=== PATIENT | female | born 1990 | race Caucasian/White ===

== ENCOUNTER 2022-09-26 15:28 | Outpatient (CLI) | payer MEDICAID ==
[~2022-09-26] VITALS: Ht 165.1 cm; Wt 134.2 kg
[2022-09-26 16:00] VITALS: BP 133/77
[2022-09-26 16:03] VITALS: BP 133/77
[2022-09-26 16:29] LABS: BILIRUBIN,URINE NEGATIVE (NEGATIVE); CLARITY,URINE CLEAR; COLOR,URINE YELLOW; GLUCOSE, URINE (UA) NEGATIVE (NEGATIVE); KETONES,URINE NEGATIVE (NEGATIVE); LEUKOCYTE ESTERASE ,URINE NEGATIVE (NEGATIVE); NITRITE,URINE NEGATIVE (NEGATIVE); PH,URINE 5.5 (5-9); PROTEIN,URINE NEGATIVE (NEGATIVE)
[2022-09-26 16:40] LABS: BACTERIA,URINE NEGATIVE /HPF; RBC,URINE 0-2 /HPF
--- NOTE | 2022-09-27 08:19 | Physician Query-Final Dx ---
Clinic Account Progress/Dx Physician Query: Please give diagnosis Please include # weeks gestation Date of Service Sep 26, 2022 at 15:28 MICHELLE,OctSep 27, 2022 08:19
== END 2022-09-26 17:00 | disposition home or self-care (01) ==
LOC: WSo 15:28 → LDRP 15:31 → WSo 17:00
PROVIDERS: ATTEND Family Medicine
DX: O62.9 Abnormality of forces of labor, unspecified (principal); Z3A.00 Weeks of gestation of pregnancy not specified
CPT/HCPCS: 81000; 99213

== ENCOUNTER 2022-10-07 04:48 | Inpatient (IN) | payer MEDICAID ==
[~2022-10-07] VITALS: Ht 167 cm; Wt 135.1 kg
[2022-10-07] VITALS (11 sets, daily range): BP systolic 99–131; BP diastolic 56–79
[2022-10-07] MEDS ORDERED: LACTATED RINGERS 1,000 ML IV PRN (05:30)
[2022-10-07] MEDS ORDERED: METOCLOPRAMIDE INJ 10 MG/2 ML (REGLAN) IV ONE (05:30)
[2022-10-07] MEDS ORDERED: CITRIC ACID/SOB CIT (BICITRA) 30 ML UDC PO ONE (05:30)
[2022-10-07] MEDS ORDERED: FAMOTIDINE 20MG/2ML IV (PEPCID) IV ONE (05:30)
[2022-10-07] MEDS ORDERED: CATHETER FLUSH 10 ML SYR IV PRN (05:30)
[2022-10-07 05:56] LABS: BILIRUBIN,URINE NEGATIVE (NEGATIVE); CLARITY,URINE CLEAR; COLOR,URINE YELLOW; GLUCOSE, URINE (UA) NEGATIVE (NEGATIVE); KETONES,URINE NEGATIVE (NEGATIVE); LEUKOCYTE ESTERASE ,URINE NEGATIVE (NEGATIVE); NITRITE,URINE NEGATIVE (NEGATIVE); PH,URINE 7.5 (5-9); PROTEIN,URINE NEGATIVE (NEGATIVE)
[2022-10-07 06:11] LABS: BACTERIA,URINE NEGATIVE /HPF; SQUAMOUS EPITHELIAL CELL,UR 0-2 /HPF
[2022-10-07] MEDS ORDERED: BUPR1TAB45 SL (06:13)
[2022-10-07 06:35] LABS: BASOPHILS % (AUTO) 0 % (0-10); EOSINOPHILS # (AUTO) 0.2 10^3/uL (0.0-0.3); EOSINOPHILS % (AUTO) 2 % (0-10); HEMATOCRIT 33 % (35-52); HEMOGLOBIN 11.1 g/dL (11.5-16.0); LYMPHOCYTES # (AUTO) 1.9 10^3/uL (1.0-4.0); LYMPHOCYTES % (AUTO) 19 % (12-44); MEAN CORPUSCULAR HEMOGLOBIN 28 pg (25-34); MEAN CORPUSCULAR HGB CONC 33 g/dL (32-36); MEAN CORPUSCULAR VOLUME 85 fL (80-99); MEAN PLATELET VOLUME 10.8 fL (9.0-12.2); MONOCYTES # (AUTO) 0.7 10^3/uL (0.0-1.0); MONOCYTES % (AUTO) 7 % (0-12); NEUTROPHILS # (AUTO) 7.1 10^3/uL (1.8-7.8); NEUTROPHILS % (AUTO) 72 % (42-75); PLATELET COUNT 179 10^3/uL (130-400); WHITE BLOOD COUNT 9.9 10^3/uL (4.3-11.0)
[2022-10-07] MEDS: LACTATED RINGERS 1,000 ML IV PRN ×2 (06:54→07:29)
[2022-10-07] MEDS ORDERED: CLINDAMYCIN 900 MG/50 ML IVPB 50 ML IV ONE (07:30)
[2022-10-07] MEDS: CATHETER FLUSH 10 ML SYR IV SCH ×2 (07:30→14:00)
--- NOTE | 2022-10-07 09:12 | History & Physical ---
History and Physical Date Seen by Provider: Oct 07, 2022 Time Seen by Provider: 09:08 This patient is a 31-year-old 7 para 3 3 female who presented with P PROM and early labor. Her GBS culture is reported as negative. Her PCP is Dr. Hernandez. She had care in [facility].Patient was planning repeat . Her presentation this morning was complicated by her history of Suboxone use.I have discussed this patient with high wire artist and they recommend proceeding with usual management continue her Suboxone at her usual dose and useNarcotic as needed for pain control. She can have epidural or spinalWith no consideration necessarily given to the fact that she is on Suboxone.Patient has occasional contractions she denies any other problems or issues with this . Allergies are to penicillin Medications are vitamins and Suboxone the Medical social and surgical histories are per the aunt record per Dr. Dixon ch HEENT exam is normal Neck is supple no lymphadenopathy no thyromegaly Abdomen is gravid soft nontender nondistended Extremities show no clubbing cyanosis. There is no Homans' sign. Pelvic exam confirms gross rupture membranes with cervix 1/2 cm. Bedside ultrasound demonstrates a vertex presentation with An ZENIA of 13 and a cervix that appears to be around the 7 cm in length at this point. Laboratory Tests Test 10/07/22 04:47 10/07/22 06:07 Range/Units Urine Color YELLOW Urine Clarity CLEAR Urine pH 7.5 5-9 Urine Specific [place] 1.015 L 1.016-1.022 Urine Protein NEGATIVE NEGATIVE Urine Glucose (UA) NEGATIVE NEGATIVE Urine Ketones NEGATIVE NEGATIVE Urine Nitrite NEGATIVE NEGATIVE Urine Bilirubin NEGATIVE NEGATIVE Urine Urobilinogen 0.2 < = 1.0 MG/DL Urine Leukocyte Esterase NEGATIVE NEGATIVE Urine RBC (Auto) NEGATIVE NEGATIVE Urine RBC NONE /HPF Urine WBC NONE /HPF Urine Squamous Epithelial Cells 0-2 /HPF Urine Crystals NONE /LPF Urine Bacteria NEGATIVE /HPF Urine Casts NONE /LPF Urine Mucus NEGATIVE /LPF Urine Culture Indicated NO White Blood Count 9.9 4.3-11.0 10^3/uL Red Blood Count 3.93 3.80-5.11 10^6/uL Hemoglobin 11.1 L 11.5-16.0 g/dL Hematocrit 33 L 35-52 % Mean Corpuscular Volume 85 80-99 fL Mean Corpuscular Hemoglobin 28 25-34 pg Mean Corpuscular Hemoglobin Concent 33 32-36 g/dL Red Cell Distribution Width 14.4 10.0-14.5 % Platelet Count 179 130-400 10^3/uL Mean Platelet Volume 10.8 9.0-12.2 fL Immature Granulocyte % (Auto) 0 % Neutrophils (%) (Auto) 72 42-75 % Lymphocytes (%) (Auto) 19 12-44 % Monocytes (%) (Auto) 7 0-12 % Eosinophils (%) (Auto) 2 0-10 % Basophils (%) (Auto) 0 0-10 % Neutrophils # (Auto) 7.1 1.8-7.8 10^3/uL Lymphocytes # (Auto) 1.9 1.0-4.0 10^3/uL Monocytes # (Auto) 0.7 0.0-1.0 10^3/uL Eosinophils # (Auto) 0.2 0.0-0.3 10^3/uL Basophils # (Auto) 0.0 0.0-0.1 10^3/uL Immature Granulocyte # (Auto) 0.0 0.0-0.1 10^3/uL Assessment and plan 38+ weeks gestation the patient with 3 previous C-sections and with spontaneous rupture membranes. Patient has Suboxone due to history of narcotic addiction. I have reviewed this patient with high wire artist at [facility] who recommends proceeding with usual indicated care which would include repeat . Continuing her Suboxone and using narcotic as necessary for pain control.We will proceed with delivery shortly 38 weeks gestation with 3 previous C-sections and spontaneous rupture membranes and early labor Allergies and Home Medications Allergies Coded Allergies: Penicillins (Verified Allergy, Unknown, 10/07/22) Patient Home Medication List Home Medication List Reviewed: No Buprenorphine HCl/Naloxone HCl (Buprenorphin-Naloxon 8-2 mg Sl) 8 Mg-2 Mg Tab.subl, 1 EACH SL DAILY, (Reported) Entered as Reported by: GT PEÑA on 10/07/22612 Last Action: New Order JOHNNY CONNOLLY MD Oct 07, 2022 09:12
[2022-10-07] MEDS ORDERED: fentaNYL INJ 100 MCG/2 ML AMP ONE (09:17)
--- NOTE | 2022-10-07 09:43 | Diagnostic Imaging Report ---
INDICATION: Evaluate amniotic fluid volume and presentation. TECHNIQUE: Multiple real-time grayscale images were obtained over the gravid uterus. COMPARISON: None FINDINGS: There is a single live fetus in a cephalic presentation. heart rate was recorded at 146 bpm. Placenta is anterior and fundal. Amniotic fluid index is 13 cm. Cervical length is 7.2 cm. No complicating features are seen. Biometrical measurements are as follows: Biparietal 9.48 cm, age 38 weeks 5 days. Head circumference 35.51 cm, age 41 weeks 4 days. Abdominal circumference 35.57 cm, age 39 weeks 4 days. Femur length 7.67 cm, age 39 weeks 2 days. Sonographic estimate age: 39 weeks 6 days. Sonographic estimated date of delivery: 10/08/2022. Estimated Weight: 3821 gm (+/- 558 gm). LMP percentile: 90%. heart rate: 146 beats per minute. number: 1 of 1. IMPRESSION: Single live IUP approximately 40 weeks gestational age. No complicating features are detected. Dictated by: Dictated on workstation # [id number]
[2022-10-07] MEDS: OXYTOCIN PRE-MIX DRIP 500 ML IV SCH ×2 (10:10→10:30)
[2022-10-07] MEDS ORDERED: OXYTOCIN PRE-MIX DRIP 500 ML IV ONE (10:27)
[2022-10-07] MEDS ORDERED: KETOROLAC 30 MG/ML VIAL IV SCH (11:30)
[2022-10-07] MEDS ORDERED: D5 LR IV SOLUTION 1,000 ML IV SCH (11:30)
[2022-10-07] MEDS ORDERED: MEPERIDINE (DEMEROL) INJ 100 MG/ML IM PRN (11:30)
[2022-10-07] MEDS ORDERED: PROMETHAZINE INJ 25 MG/ML (PHENERGAN) AMP IVP PRN (11:30)
[2022-10-07] MEDS: ACETAMINOPHEN 500 MG TAB (TYLENOL) PO SCH ×3 (11:34→23:13)
[2022-10-07] MEDS: IBUPROFEN 800 MG (MOTRIN) TAB PO SCH ×2 (18:00→23:13)
[2022-10-07] MEDS: DOCUSATE SODIUM 100 MG (COLACE) CAP PO SCH (20:23)
--- NOTE | 2022-10-07 23:01 | OPERATIVE REPORT ---
DATE OF SERVICE: 10/07/2022 PREOPERATIVE DIAGNOSES: A 38 and 2/7th weeks' gestation in labor with PPROM and three previous C-sections. POSTOPERATIVE DIAGNOSES: A 38 and 2/7th weeks' gestation in labor with PPROM and three previous C-sections. OPERATIVE PROCEDURE: Repeat low transverse delivery of a viable male infant with Apgars of 6 and 8 at 1 and 5 minutes respectively, weight of 6 pounds and 12 ounces. Cord blood pH of 7.3 and a time of 07/10/2022. DESCRIPTION OF PROCEDURE: With the patient in the supine position, under satisfactory spinal analgesia. The patient was prepped and draped in the usual fashion for abdominal surgery. Cuellar catheter was placed in the urinary bladder. The abdominal wall had a large panniculus that was retracted with towel clips in the lateral portion of the upper part of the lower quadrant on each side that was attached to a post at the head of the bed, exposing the lower abdomen nicely. Repeat Pfannenstiel incision was made through the skin with a scalpel. The patient's abdomen was entered in the usual manner. Bladder retractor was placed into position. Clean scalpel used to make a 4 cm hysterotomy incision transversely across the lower uterine segment that was extended bluntly as well. Fisher forceps were applied to facilitate the delivery of a vigorous viable male infant with Apgars and stats as noted above. The infant was bulb suctioned on delivery of the head, again on completion of the delivery. The umbilical cord was doubly clamped and cut and the infant passed to the pediatric nurse in attendance for the delivery. Cord bloods were obtained. The placenta delivered spontaneously Hernandez. It was normal with 3-vessel cord. It was sent to pathology for permanent section. The uterus was exteriorized and the interior wiped clean with a wet laparotomy sponge. Uterine incision was closed with a running locked suture of 2-0 Vicryl. Hemostasis was complete. The uterus was returned to the abdominal cavity. All blood clot and debris removed from the abdominal cavity. Sponge and needle counts were correct. Hemostasis was assured. The anterior parietoperitoneum was closed with 2-0 Vicryl as well as the rectus muscles. The rectus fascia and subcutaneous tissue was closed with 2-0 Vicryl as well. The skin was stapled. Sponge and needle counts were correct on completion of the procedure. Blood loss was around 400 mL. The patient tolerated the procedure well and was transferred to the recovery room in stable condition. The infant had been taken stable to the full term nursery under the care of pediatric nurse in attendance. Job ID: [id number] DocumentID: [id number] Dictated Date: 10/07/2022 12:59:00 Executive Consultant Date: 10/07/2022 22:59:00 Dictated By: JOHNNY CONNOLLY MD
[2022-10-08 04:05] VITALS: BP 115/63
[2022-10-08] MEDS: IBUPROFEN 800 MG (MOTRIN) TAB PO SCH ×3 (07:46→20:12)
[2022-10-08] MEDS: ACETAMINOPHEN 500 MG TAB (TYLENOL) PO SCH ×3 (07:46→20:12)
[2022-10-08 08:45] VITALS: BP 122/70
[2022-10-08] MEDS: DOCUSATE SODIUM 100 MG (COLACE) CAP PO SCH ×2 (08:51→20:12)
--- NOTE | 2022-10-08 10:38 | Progress Note ---
Standard Progress Note Progress Notes/Assess & Plan Date Seen by a Provider: Oct 08, 2022 Time Seen by a Provider: 10:34 Progress/Assessment & Plan This patient is without complaint. She is ambulating, voiding, tolerating oral intake well has good pain control. She denies chest pain, denies shortness of breath, denies nausea and vomiting and denies headache. She does report some serosanguineous drainage from her incision and some bruising of the mons and labia and lower abdominal wall Vital Signs Date Time Temp Pulse Resp B/P (MAP) Pulse Ox O2 Delivery O2 Flow Rate FiO2 10/08/22 08:45 36.7 108 18 122/70 (87) 99 Room Air 10/08/22 07:35 Room Air 10/08/22 04:05 36.3 98 18 115/63 (80) 99 Room Air 10/07/22 23:13 36.4 103 18 122/67 (85) 99 Room Air 10/07/22 19:07 83 18 126/78 (94) Room Air 10/07/22 18:05 36.6 85 18 123/69 (87) 99 Room Air 10/07/22 14:00 36.5 76 18 115/79 (91) 98 Room Air 10/07/22 11:23 Room Air 10/07/22 11:23 36.2 18 113/77 (89) 99 Room Air 10/07/22 11:08 Room Air 10/07/22 11:08 36.2 18 110/61 (77) 100 Room Air 10/07/22 10:53 Room Air 10/07/22 10:53 36.2 18 131/56 (81) 100 Room Air 10/07/22 10:38 Room Air 10/07/22 10:38 36.2 16 112/75 (87) 98 Room Air I & O 10/08/22 07:00 Intake Total 4900 ml Output Total 650 ml Balance 4250 ml Vital signs are stable. Patient is afebrile. The abdomen is benign. The fundus is firm below the umbilicus and nontender. The surgical incision is clean and dry. There is diffuse ecchymoses of the mons and extending into the labia bilaterally. The lower abdominal wall is involved with ecchymoses as well. There has been some drainage through the staple line but that has decreased since last night. Appears obvious patient has had some subcutaneous bleeding. There is no induration there is no inflammation there is no purulent discharge. She may very well have some degree of hematoma formation in the incisional space. Extremities show no clubbing or cyanosis. There is no Homans' sign. Pelvic exam is deferred Assessment and plan Patient is postoperative day #1 status post repeat for P PROM at 38+ weeks gestation. Her condition is complicated by her use of Suboxone due to her history of narcotic addiction. We are continuing her Suboxone as would be the norm. We are using oxycodone and dose is adequate for pain control patient is doing relatively well. She is ambulating nice. She has some extensive ecchymoses of the lower abdominal wall and subcutaneous pelvic tissue. At this point we will follow with observation. Should she develop concerning symptoms it may be necessary to explore the wound remove the hematoma etc. Patient otherwise will now have routine convalescent care JOHNNY CONNOLLY MD Oct 08, 2022 10:38
[2022-10-08] MEDS ORDERED: IBUP-1780 PO (10:40)
[2022-10-08] MEDS ORDERED: DOCU100C37 PO (10:40)
[2022-10-08] MEDS ORDERED: OXC5T PO (10:40)
--- NOTE | 2022-10-08 10:42 | Discharge Inst-Surgical ---
Discharge Inst-Surgical Depart Medication/Instructions New, Converted or Re-Newed RX: Transmitted to Pharmacy Consults/Follow Up Orders & Referrals Follow Up Appt: RTC 1 week for incision check with Dr. Sutton Call to make follow up appt. for patient in [address] Patterson. Wound Care: Remove [place], apply benzoin and steri strips. Activity Per routine post instructions. Prescriptions have been sent electronically to patient's pharmacy for Percocet Motrin and Colace. She is continue her own home medications including her Suboxone Diet as tolerated Patient may shower or tub bathe as desired. Continue home meds Activity Activity as Tolerated: No Diet Discharge Diet: No Restrictions JOHNNY SUTTON MD Oct 08, 2022 10:42
[2022-10-08 15:00] VITALS: BP 109/54
[2022-10-08] MEDS ORDERED: CALCIUM CARBONATE 500 MG (TUMS) TAB.CHEW PO PRN (18:00)
[2022-10-08 20:20] VITALS: BP 122/58
[2022-10-09] MEDS: IBUPROFEN 800 MG (MOTRIN) TAB PO SCH ×4 (02:35→20:08)
[2022-10-09] MEDS: ACETAMINOPHEN 500 MG TAB (TYLENOL) PO SCH ×4 (02:36→20:09)
[2022-10-09 02:40] VITALS: BP 116/62
[2022-10-09 08:00] VITALS: BP 115/57
[2022-10-09] MEDS: DOCUSATE SODIUM 100 MG (COLACE) CAP PO SCH ×2 (08:00→20:09)
--- NOTE | 2022-10-09 10:04 | Progress Note ---
Standard Progress Note Progress Notes/Assess & Plan Date Seen by a Provider: Oct 09, 2022 Time Seen by a Provider: 09:59 Progress/Assessment & Plan This patient is without complaint. She is ambulating, voiding, tolerating oral intake well has good pain control. She denies chest pain, denies shortness of breath, denies nausea and vomiting and denies headache. She does report some serosanguineous drainage from her incision and some bruising of the mons and labia and lower abdominal wall Vital Signs Date Time Temp Pulse Resp B/P (MAP) Pulse Ox O2 Delivery O2 Flow Rate FiO2 10/08/22 08:45 36.7 108 18 122/70 (87) 99 Room Air 10/08/22 07:35 Room Air 10/08/22 04:05 36.3 98 18 115/63 (80) 99 Room Air 10/07/22 23:13 36.4 103 18 122/67 (85) 99 Room Air 10/07/22 19:07 83 18 126/78 (94) Room Air 10/07/22 18:05 36.6 85 18 123/69 (87) 99 Room Air 10/07/22 14:00 36.5 76 18 115/79 (91) 98 Room Air 10/07/22 11:23 Room Air 10/07/22 11:23 36.2 18 113/77 (89) 99 Room Air 10/07/22 11:08 Room Air 10/07/22 11:08 36.2 18 110/61 (77) 100 Room Air 10/07/22 10:53 Room Air 10/07/22 10:53 36.2 18 131/56 (81) 100 Room Air 10/07/22 10:38 Room Air 10/07/22 10:38 36.2 16 112/75 (87) 98 Room Air I & O 10/08/22 07:00 Intake Total 4900 ml Output Total 650 ml Balance 4250 ml Vital signs are stable. Patient is afebrile. The abdomen is benign. The fundus is firm below the umbilicus and nontender. The surgical incision is clean and dry. There is diffuse ecchymoses of the mons and extending into the labia bilaterally. The lower abdominal wall is involved with ecchymoses as well. There has been some drainage through the staple line but that has decreased since last night. Appears obvious patient has had some subcutaneous bleeding. There is no induration there is no inflammation there is no purulent discharge. She may very well have some degree of hematoma formation in the incisional space. Extremities show no clubbing or cyanosis. There is no Homans' sign. Pelvic exam is deferred Assessment and plan Patient is postoperative day #1 status post repeat for P PROM at 38+ weeks gestation. Her condition is complicated by her use of Suboxone due to her history of narcotic addiction. We are continuing her Suboxone as would be the norm. We are using oxycodone and dose is adequate for pain control patient is doing relatively well. She is ambulating nice. She has some extensive ecchymoses of the lower abdominal wall and subcutaneous pelvic tissue. At this point we will follow with observation. Should she develop concerning symptoms it may be necessary to explore the wound remove the hematoma etc. Patient otherwise will now have routine convalescent care October 09, 2022 This patient is without complaint. She is ambulating, voiding, tolerating oral intake and has good pain control. She denies chest pain, denies shortness of b reath, denies nausea vomiting, and denies headache. Her pain is well controlled. Vital Signs Date Time Temp Pulse Resp B/P (MAP) Pulse Ox O2 Delivery O2 Flow Rate FiO2 10/09/22 08:00 36.6 67 18 115/57 (76) 98 Room Air 10/09/22 02:40 36.5 100 18 116/62 (80) 99 Room Air 10/08/22 20:20 36.3 94 18 122/58 (79) 100 Room Air 10/08/22 15:00 36.0 99 18 109/54 (72) 97 Room Air Vital signs are stable. Patient is afebrile. The abdomen is benign. The previously noted ecchymosis is less intense and more widespread as would be expected. There is no noticeable erythema, there is no induration, there were no signs symptoms or indication of infection. There is no palpable hematoma. Extremities show no clubbing or cyanosis. There is no Homans' sign. Pelvic exam is deferred Assessment and plan Postoperative day #2 status post repeat doing well. Plan is to continue routine convalescent care. Patient is obviously had some subcutaneous bleeding as result of her delivery. She has fairly intense ecchymoses in the lower abdominal wall and mons and labia. The appearance is stable to showing improvement. There is currently no indication for invasive management however that time could arise. Patient has been well-informed regarding the natural history of diffuse ecchymoses of this nature. She understands that should she have progressive pain or indication of infection manifest by increasing pain and increasing temperature foul discharge or should she have persistent drainage from the incision where there that be serous serosanguineous or purulent she should be seen promptly. There is some possibility of requiring some degree of wound exploration particularly if she lower the wound show deterioration. Otherwise we will continue routine convalescent care and plan on discharge home potentially tomorrow or the next day JOHNNY CONNOLLY MD Oct 09, 2022 10:04
[2022-10-09 14:00] VITALS: BP 116/60
[2022-10-09 20:05] VITALS: BP 120/56
[2022-10-10 02:45] VITALS: BP 120/59
[2022-10-10] MEDS: IBUPROFEN 800 MG (MOTRIN) TAB PO SCH ×2 (02:46→08:29)
[2022-10-10] MEDS: ACETAMINOPHEN 500 MG TAB (TYLENOL) PO SCH ×2 (02:46→08:30)
--- NOTE | 2022-10-10 08:23 | Progress Note ---
Standard Progress Note Progress Notes/Assess & Plan Date Seen by a Provider: Oct 10, 2022 Time Seen by a Provider: 08:22 Progress/Assessment & Plan This patient is without complaint. She is ambulating, voiding, tolerating oral intake well has good pain control. She denies chest pain, denies shortness of breath, denies nausea and vomiting and denies headache. She does report some serosanguineous drainage from her incision and some bruising of the mons and labia and lower abdominal wall Vital Signs Date Time Temp Pulse Resp B/P (MAP) Pulse Ox O2 Delivery O2 Flow Rate FiO2 10/08/22 08:45 36.7 108 18 122/70 (87) 99 Room Air 10/08/22 07:35 Room Air 10/08/22 04:05 36.3 98 18 115/63 (80) 99 Room Air 10/07/22 23:13 36.4 103 18 122/67 (85) 99 Room Air 10/07/22 19:07 83 18 126/78 (94) Room Air 10/07/22 18:05 36.6 85 18 123/69 (87) 99 Room Air 10/07/22 14:00 36.5 76 18 115/79 (91) 98 Room Air 10/07/22 11:23 Room Air 10/07/22 11:23 36.2 18 113/77 (89) 99 Room Air 10/07/22 11:08 Room Air 10/07/22 11:08 36.2 18 110/61 (77) 100 Room Air 10/07/22 10:53 Room Air 10/07/22 10:53 36.2 18 131/56 (81) 100 Room Air 10/07/22 10:38 Room Air 10/07/22 10:38 36.2 16 112/75 (87) 98 Room Air I & O 10/08/22 07:00 Intake Total 4900 ml Output Total 650 ml Balance 4250 ml Vital signs are stable. Patient is afebrile. The abdomen is benign. The fundus is firm below the umbilicus and nontender. The surgical incision is clean and dry. There is diffuse ecchymoses of the mons and extending into the labia bilaterally. The lower abdominal wall is involved with ecchymoses as well. There has been some drainage through the staple line but that has decreased since last night. Appears obvious patient has had some subcutaneous bleeding. There is no induration there is no inflammation there is no purulent discharge. She may very well have some degree of hematoma formation in the incisional space. Extremities show no clubbing or cyanosis. There is no Homans' sign. Pelvic exam is deferred Assessment and plan Patient is postoperative day #1 status post repeat for P PROM at 38+ weeks gestation. Her condition is complicated by her use of Suboxone due to her history of narcotic addiction. We are continuing her Suboxone as would be the norm. We are using oxycodone and dose is adequate for pain control patient is doing relatively well. She is ambulating nice. She has some extensive ecchymoses of the lower abdominal wall and subcutaneous pelvic tissue. At this point we will follow with observation. Should she develop concerning symptoms it may be necessary to explore the wound remove the hematoma etc. Patient otherwise will now have routine convalescent care October 09, 2022 This patient is without complaint. She is ambulating, voiding, tolerating oral intake and has good pain control. She denies chest pain, denies shortness of b reath, denies nausea vomiting, and denies headache. Her pain is well controlled. Vital Signs Date Time Temp Pulse Resp B/P (MAP) Pulse Ox O2 Delivery O2 Flow Rate FiO2 10/09/22 08:00 36.6 67 18 115/57 (76) 98 Room Air 10/09/22 02:40 36.5 100 18 116/62 (80) 99 Room Air 10/08/22 20:20 36.3 94 18 122/58 (79) 100 Room Air 10/08/22 15:00 36.0 99 18 109/54 (72) 97 Room Air Vital signs are stable. Patient is afebrile. The abdomen is benign. The previously noted ecchymosis is less intense and more widespread as would be expected. There is no noticeable erythema, there is no induration, there were no signs symptoms or indication of infection. There is no palpable hematoma. Extremities show no clubbing or cyanosis. There is no Homans' sign. Pelvic exam is deferred Assessment and plan Postoperative day #2 status post repeat doing well. Plan is to continue routine convalescent care. Patient is obviously had some subcutaneous bleeding as result of her delivery. She has fairly intense ecchymoses in the lower abdominal wall and mons and labia. The appearance is stable to showing improvement. There is currently no indication for invasive management however that time could arise. Patient has been well-informed regarding the natural history of diffuse ecchymoses of this nature. She understands that should she have progressive pain or indication of infection manifest by increasing pain and increasing temperature foul discharge or should she have persistent drainage from the incision where there that be serous serosanguineous or purulent she should be seen promptly. There is some possibility of requiring some degree of wound exploration particularly if she lower the wound show deterioration. Otherwise we will continue routine convalescent care and plan on discharge home potentially tomorrow or the next day October 10, 2022 Patient is without complaint. She is ambulating, voiding, tolerating oral intake well and has good pain control. Patient is requesting discharge home. Vital Signs Date Time Temp Pulse Resp B/P (MAP) Pulse Ox O2 Delivery O2 Flow Rate FiO2 10/10/22 02:45 36.3 90 18 120/59 (79) 98 Room Air 10/09/22 20:05 36.3 106 18 120/56 (77) 100 Room Air 10/09/22 14:00 36.2 78 18 116/60 (78) 99 Room Air Vital signs are stable. Patient is afebrile. The abdomen is benign. The ecchymoses is continues to diffuse. There is no signs symptoms indication of infection or inflammation. Incision is intact Extremities show no clubbing cyanosis. There is no Homans' sign. Assessment and plan Postoperative day #3 status post repeat delivery doing well. Plans for discharge home with follow-up in clinic JOHNNY CONNOLLY MD Oct 10, 2022 08:23
[2022-10-10 08:29] VITALS: BP 121/59
[2022-10-10] MEDS: DOCUSATE SODIUM 100 MG (COLACE) CAP PO SCH (08:29)
[2022-10-10 11:05] VITALS: BP 121/59
== END 2022-10-10 11:05 | disposition home or self-care (01) | DRG 787 ==
LOC: WSo 04:48 → LDRP 04:49 → WSo 05:17 → LDRP 05:18
PROVIDERS: ADMIT Obstetrics & Gynecology; ATTEND Obstetrics & Gynecology
PROC: 10D00Z1 Extraction of Products of Conception, Low, Open Approach (ICD-10-PCS; principal; 2022-10-07 09:27)
DX: O42.02 Full-term premature rupture of membranes, onset of labor within 24 hours of rupture (principal); F11.20 Opioid dependence, uncomplicated; O99.324 Drug use complicating childbirth; O34.211 Maternal care for low transverse scar from previous cesarean delivery; Z3A.38 38 weeks gestation of pregnancy; Z37.0 Single live birth
CPT/HCPCS: 36415; 76805; 81000; 85025; 85027; 86780; 86850; 86900; 86901; 94664; 99212

== ENCOUNTER 2022-10-07 05:30 | Outpatient (CLI) | payer MEDICAID ==
[2022-10-07] MEDS ORDERED: BUPR1TAB45 SL (06:13)
[2022-10-08] MEDS ORDERED: DOCU100C37 PO (10:40)
[2022-10-08] MEDS ORDERED: IBUP-1780 PO (10:40)
[2022-10-08] MEDS ORDERED: OXC5T PO (10:40)
== END 2022-10-11 09:36 | disposition home or self-care (01) ==
LOC: PREOP 05:30
PROVIDERS: ATTEND Obstetrics & Gynecology
DX: Z01.818 Encounter for other preprocedural examination (principal)